=== PATIENT | female | born 1990 | race Two or more races ===

== ENCOUNTER 2023-07-13 08:59 | Outpatient (CLI) | payer MEDICAID | END 2023-07-13 09:00 | disposition home or self-care (01) | LOC: LAB.N 08:59 | PROVIDERS: ATTEND Obstetrics & Gynecology | DX: Z34.90 Encounter for supervision of normal pregnancy, unspecified, unspecified trimester (principal); Z36.89 Encounter for other specified antenatal screening | CPT/HCPCS: 36415; 82950; 86762 ==

== ENCOUNTER 2023-07-19 13:33 | Outpatient (CLI) | payer MEDICAID | END 2023-07-19 13:34 | disposition home or self-care (01) | LOC: LAB 13:33 | PROVIDERS: ATTEND Obstetrics & Gynecology | DX: Z53.9 Procedure and treatment not carried out, unspecified reason (principal) ==

== ENCOUNTER 2023-07-21 07:49 | Outpatient (CLI) | payer MEDICAID ==
[2023-07-21 08:35] LABS: GTT GLUCOSE,FASTING 83 mg/dL (74-109)
== END 2023-07-21 07:50 | disposition home or self-care (01) ==
LOC: LAB 07:49
PROVIDERS: ATTEND Obstetrics & Gynecology
DX: O99.810 Abnormal glucose complicating pregnancy (principal)
CPT/HCPCS: 36415; 82951; 82952

== ENCOUNTER 2023-09-04 01:44 | Inpatient (IN) | payer MEDICAID ==
[2023-09-04] MEDS ORDERED: OXYTOCIN/SODIUM CHLORIDE 500 ML IV PRN ×2 (02:22→03:19)
[2023-09-04] MEDS ORDERED: LACTATED RINGERS 1,000 ML IV PRN (02:22)
[2023-09-04] MEDS ORDERED: miSOPROStoL 200 MCG TABLET BC PRN (02:22)
[2023-09-04] MEDS ORDERED: lidocaine 1% 20 ML MDV ID PRN (02:22)
[2023-09-04] MEDS ORDERED: fentaNYL 100 MCG/2 ML VIAL IVP PRN (02:22)
[2023-09-04] MEDS ORDERED: CARBOPROST TROMETHAMINE 250 MCG/ML AMP IM PRN (02:22)
[2023-09-04] MEDS ORDERED: OXYTOCIN 10 UNIT/ML VIAL IM PRN (02:22)
[2023-09-04] MEDS ORDERED: TERBUTALINE 1 MG/ML VIAL SUBQ PRN (02:22)
[2023-09-04] MEDS ORDERED: METHYLERGONOVINE 0.2 MG/ML VIAL IM PRN (02:22)
[2023-09-04] MEDS ORDERED: hydrALAZINE INJ 20 MG/ML VIAL IVP PRN ×2 (02:22)
[2023-09-04] MEDS ORDERED: NIFEdipine 10 MG CAPSULE PO PRN (02:22)
[2023-09-04] MEDS ORDERED: SODIUM CHLORIDE FLUSH 0.9% 10 ML SYRINGE IVP PRN (02:22)
[2023-09-04] MEDS ORDERED: miSOPROStoL 200 MCG TABLET PR PRN (02:22)
[2023-09-04] MEDS ORDERED: TRANEXAMIC ACID IN NACL 1,000 MG/100 ML BAG IV PRN (02:22)
[2023-09-04] MEDS ORDERED: LABETALOL 20 MG/4 ML SYRINGE IVP PRN ×3 (02:22)
[2023-09-04] MEDS ORDERED: METHYLERGONOVINE 0.2 MG/ML VIAL ONE (02:32)
[2023-09-04] MEDS ORDERED: OXYTOCIN 10 UNIT/ML VIAL ONE (02:33)
[2023-09-04] MEDS ORDERED: CARBOPROST TROMETHAMINE 250 MCG/ML AMP IM ONE (02:33)
[2023-09-04] MEDS ORDERED: SIMETHICONE CHEW 80 MG TABLET PO PRN ×2 (02:44→03:19)
[2023-09-04] MEDS ORDERED: ONDANSETRON 4 MG/2 ML VIAL IVP PRN ×2 (02:44→03:19)
[2023-09-04] MEDS ORDERED: LACTATED RINGERS 1,000 ML IV SCH ×2 (02:44→03:00)
[2023-09-04 03:09] LABS: BASOPHILS % (AUTO) 0.2 %; EOSINOPHILS % (AUTO) 0.1 %; HCT - HEMATOCRIT 38.9 % (37.0-47.0); HGB - HEMOGLOBIN 12.6 g/dL (12.0-16.0); LYMPHOCYTES # (AUTO) 2.1 10^3/uL (1.5-3.5); LYMPHOCYTES % (AUTO) 15.3 %; MEAN CORPUSCULAR HEMOGLOBIN 28.4 pg (27.0-31.0); MEAN CORPUSCULAR HGB CONC 32.4 g/dL (32.0-36.0); MEAN CORPUSCULAR VOLUME 87.8 fL (81.0-99.0); MEAN PLATELET VOLUME 10.5 fL (7.9-10.8); MONOCYTES # (AUTO) 0.6 10^3/uL (0.0-1.0); MONOCYTES % (AUTO) 4.5 %; NEUTROPHILS # (AUTO) 10.8 10^3/uL (1.5-6.6); NEUTROPHILS % (AUTO) 79.5 %; PLT - PLATELET COUNT 263 10^3/uL (130-450); RED BLOOD COUNT 4.43 10^6/uL (4.20-5.40); RED CELL DISTRIBUTION WIDTH 13.6 % (12.0-15.0); WHITE BLOOD COUNT 13.5 x10^3/uL (4.8-10.8)
--- NOTE | 2023-09-04 03:09 | HISTORY & PHYSICAL EXAMINATION ---
Admit History - Visit Reason Visit Reason: Contractions, Membranes rupture - : 5 Parity: 4 Care: positive: [facility] Risk/History: positive: None Complications This : positive: None - Mother's Labs Mother's Blood Type: positive: O Mother's RH: positive: Positive GBS: positive: Group B Step Negative - HPI Diagnosis/Indication for NST: Other (labor) - NST Procedure 39+3 weeks 145, moderate variability, +accels, no decels Reactive NST Review of Systems - All Other Systems All Other Systems: reports: Reviewed and negative Physical - Abdominal Exam Vital Signs: VSS Contraction Frequency (min/apart): 3 Contraction Intensity: positive: Strong Uterine Resting Tone: positive: Soft - Monitoring Strip Review: positive: Category I - Presentation Presentation: positive: Vertex - Vaginal Exam Membranes: positive: Membranes ruptured Dilation (in cm): 9 Effacement (%): 90 Station: positive: 1 Cervical Position: positive: Anterior - Speculum Exam Findings: positive: Gross leak Plan for Labor - Plan For Labor I expect patient to be DC'd or transferred within 96 hours.: Yes Plan for Labor: Patient is a who presented at term in active labor with rupture of membranes around 2 am. Anterior cervical lip. wellbeing is reassuring. GBS negative.
--- NOTE | 2023-09-04 03:18 | DELIVERY NOTE ---
Delivery Note - Labor Labor: positive: Spontaneous - Presentation Presentation: positive: Vertex - Nuchal Cord Nuchal Cord: positive: None - Amniotic Fluid Description Amniotic Fluid Description: positive: Clear - Episiotomy Type Episiotomy Type: positive: None - Laceration Laceration: positive: Cervical - Suture Suture Type: positive: Other (monocyrl) Suture Size: positive: 3-0 - Delivery Outcome Delivery Outcome: positive: Livebirth - : positive: Bulb syringe, Warmed, [place] used, Warmer used sex: positive: Male - Cord Cord: positive: 3 vessels - Placenta Placenta: positive: Intact - Estimated Blood Loss Estimated Blood Loss (in cc): 250 - Delivery Comments (Free Text/Narrative) Delivery Comments (Free Text/Narrative): Stage I: Patient is a presented in active labor with spontaneous rupture of membranes at about 2 am with clear fluid. FHTs remained reassuring throughout the first stage. Stage II: Male infant atraumatically delivered from [place] position while patient standing. There was no nuchal cord. The anterior shoulder was delivered without difficulty followed by the posterior shoulder and body. was vigorous at delivery. was bulb suctioned and cord was doubly clamped and cut. was placed on mom. Weight and APGARS pending Stage III: Gentle cord traction and crede maneuver were used. Placenta delivered spontaneously. Placenta was noted to not be intact. 3 vessel cord. Course: Uterine tone was firm with massage after delivery of the placenta. Oxytocin was administered IV. There was a small anterior cervical laceration that required a [id number] suture of 3-0 monocryl. No perineal lacerations. EBL: 250 mL. Sponge, instrument and needle counts were correct. branch maker used.
[2023-09-04] MEDS ORDERED: NALOXONE 0.4 MG/ML VIAL IVP PRN (03:19)
[2023-09-04] MEDS ORDERED: CALCIUM CARBONATE CHEW 500 MG TABLET PO PRN (03:19)
[2023-09-04 03:46] LABS: ALBUMIN 3.6 g/dL (3.2-5.5)
[2023-09-04 03:48] LABS: ALBUMIN/GLOBULIN RATIO 1.1 (1.0-2.2); BILIRUBIN,TOTAL 0.3 mg/dL (0.2-1.0); CALCIUM 9.1 mg/dL (8.5-10.3); CREATININE 0.6 mg/dL (0.6-1.3); POTASSIUM 3.8 mmol/L (3.5-4.5)
[2023-09-04] MEDS ORDERED: ACETAMINOPHEN 500 MG TABLET PO SCH (04:00)
[2023-09-04] MEDS ORDERED: KETOROLAC 30 MG/ML VIAL IVP SCH (06:00)
[2023-09-04] MEDS: IBUPROFEN 600 MG TABLET PO SCH ×3 (08:08→21:14)
[2023-09-04] MEDS: DOCUSATE SODIUM 100 MG CAPSULE PO SCH ×2 (08:08→21:15)
[2023-09-04] MEDS ORDERED: DOCUSATE SODIUM 100 MG CAPSULE PO SCH (09:00)
--- NOTE | 2023-09-04 10:40 | PROVIDER PROGRESS NOTE ---
Subjective - Prog Note Date Prog Note Date: 09/04/23 Prog Note Time: 10:38 - Subjective Subjective: Patient is day 0 status post normal spontaneous vaginal delivery. Patient is doing well this morning. She is ambulating, tolerating regular diet. Lochia is equal to menses. Objective - Vital Signs/Intake & Output Reviewed Vital Signs: Yes Vital Signs: Vital Signs x48h Temp Pulse Resp BP 09/04/23 08:00 98.3 F 68 16 115/71 09/04/23 05:43 99.5 F 75 18 119/68 - Objective General Appearance: positive: No acute distress Respiratory: positive: Breath sounds nml Cardiovascular: positive: Regular rate & rhythm Abdomen: positive: Non-tender (firm fundus below umbilicus) Skin: positive: Color nml Extremities: positive: No pedal edema - Lab Results Fish Bones: 09/04/23 02:15 09/04/23 02:15 Other Labs: Lab Results x24hrs 09/04/23 09/04/23 09/04/23 Range/Units 02:15 02:15 02:15 WBC 13.5 H (4.8-10.8) x10^3/uL RBC 4.43 (4.20-5.40) 10^6/uL Hgb 12.6 (12.0-16.0) g/dL Hct 38.9 (37.0-47.0) % MCV 87.8 (81.0-99.0) fL MCH 28.4 (27.0-31.0) pg MCHC 32.4 (32.0-36.0) g/dL RDW 13.6 (12.0-15.0) % Plt Count 263 (130-450) 10^3/uL MPV 10.5 (7.9-10.8) fL Neut # (Auto) 10.8 H (1.5-6.6) 10^3/uL Lymph # (Auto) 2.1 (1.5-3.5) 10^3/uL [place] # (Auto) 0.6 (0.0-1.0) 10^3/uL Eos # (Auto) 0.0 (0.0-0.7) 10^3/uL Baso # (Auto) 0.0 (0.0-0.1) 10^3/uL Absolute Nucleated RBC 0.00 x10^3/uL Nucleated RBC % 0.0 /100WBC Sodium 135 (135-145) mmol/L Potassium 3.8 (3.5-4.5) mmol/L Chloride 104 (101-111) mmol/L Carbon Dioxide 18 L (21-32) mmol/L Anion Gap 13.0 (6-13) BUN 12 (6-20) mg/dL Creatinine 0.6 (0.6-1.3) mg/dL Estimated GFR (MDRD) 116 (>89) Glucose 152 H (74-104) mg/dL Calcium 9.1 (8.5-10.3) mg/dL Total Bilirubin 0.3 (0.2-1.0) mg/dL AST 17 (10-42) IU/L ALT 10 (10-60) IU/L Alkaline Phosphatase 200 H (42-121) IU/L Total Protein 7.0 (6.4-8.9) g/dL Albumin 3.6 (3.2-5.5) g/dL Globulin 3.4 (2.1-4.2) g/dL Albumin/Globulin Ratio 1.1 (1.0-2.2) Blood Type O POSITIVE Antibody Screen NEGATIVE Assessment/Plan - Problem List (1) Vaginal delivery Impression: Routine care
[2023-09-04] MEDS: ACETAMINOPHEN 500 MG TABLET PO SCH ×2 (13:16→21:15)
[2023-09-05] MEDS ORDERED: IBUPROFEN 600 MG TABLET PO SCH (04:00)
[2023-09-05] MEDS: ACETAMINOPHEN 500 MG TABLET PO SCH ×2 (04:41→12:08)
[2023-09-05] MEDS: IBUPROFEN 600 MG TABLET PO SCH ×2 (04:41→12:09)
--- NOTE | 2023-09-05 08:24 | PROVIDER PROGRESS NOTE ---
Subjective - Prog Note Date Prog Note Date: 09/05/23 Prog Note Time: 08:22 - Subjective Subjective: Patient is day 1 status post normal spontaneous vaginal delivery. She is doing well this morning. She is ambulating, tolerating regular diet, s pontaneously voiding. Lochia is equal to menses.Patient is breast and bottlefeeding. Objective - Vital Signs/Intake & Output Reviewed Vital Signs: Yes Vital Signs: Vital Signs x48h Temp Pulse Resp BP 09/05/23 07:59 98.1 F 81 18 116/69 09/05/23 05:22 98.2 F 76 16 110/76 - Objective General Appearance: positive: No acute distress Respiratory: positive: Breath sounds nml Cardiovascular: positive: Regular rate & rhythm Abdomen: positive: Non-tender (Firm fundus below the umbilicus) Skin: positive: Color nml Extremities: positive: No pedal edema Neurologic/Psychiatric: positive: Oriented x3 - Lab Results Fish Bones: 09/04/23 02:15 09/04/23 02:15 Assessment/Plan - Problem List (1) Vaginal delivery Impression: Uncomplicated course. Discussed signs and symptoms of depression. Reviewed contraception options, patient would like to think about them at this time. computer graphic designer used
--- NOTE | 2023-09-05 08:25 | DISCHARGE SUMMARY ---
Discharge Summary Admit Date: 09/04/23 Discharge Date: 09/05/23 Discharging Provider: Aaron Code Status: Attempt Resuscitation Condition at Discharge: Good Discharge Disposition: 01 Home, Self Care - DIAGNOSES Admission Diagnoses: labor - HPI History of Present Illness: Patient is a G5, P4 who presented at term in labor with spontaneous rupture membranes. - HOSPITAL COURSE Hospital Course: Patient had an uncomplicated normal spontaneous vaginal delivery. She had a small cervical laceration that required a single [id number] suture of 3-0 Monocryl. She had an uncomplicated course and was discharged home on day 1. Patient was counseled on signs and symptoms of depression. Patient was counseled on contraception options and is undecided at this time. - ALLERGIES Allergies/Adverse Reactions: Allergies Allergy/AdvReac Type Severity Reaction Status Date / Time No Known Drug Allergies Allergy Verified 09/04/23 04:22 - PHYSICAL EXAM AT DISCHARGE General Appearance: positive: No acute distress Respiratory: positive: Breath sounds nml Cardiovascular: positive: Regular rate & rhythm Abdomen: positive: Non-tender (Firm fundus below the umbilicus) Extremities: positive: No pedal edema Neurologic/Psychiatric: positive: Mood/affect nml - LABS Result Diagrams: 09/04/23 02:15 09/04/23 02:15
[2023-09-05] MEDS: DOCUSATE SODIUM 100 MG CAPSULE PO SCH (08:42)
[2023-09-05 12:24] VITALS: BP 112/69
--- NOTE | 2023-09-05 17:53 | Labor Flowsheet ---
Labor Flowsheet Datetime Report Generated by CPN: 09/05/2023 17:53 Datetime: 09/05/2023 12:16 VITAL SIGNS NBP Sys/Maranda/Mean (mmHg): 112 : 69 : 80 Pulse: 80 Datetime: 09/04/2023 05:43 Stage of : Datetime: 09/04/2023 04:58 VAGINAL EXAM Membranes Ruptured Date/Time: 09/04/2023 02:09 Membranes Rupture Method: Spontaneous Amniotic Fluid Color: Clear Amniotic Fluid Amount: Moderate Amniotic Fluid Odor: None Datetime: 09/04/2023 02:44 Stage 2 Comments: baby out Datetime: 09/04/2023 02:43 FHR Baseline Rate : 145 Datetime: 09/04/2023 02:40 UTERINE ACTIVITY Monitor Mode: External Frequency (min): 2-3 Quality: Strong Pattern: Normal: <= 5 Contractions in 10 Minutes Resting Tone (Palpate): Relaxed Contraction Comments: contraction duration indeterminate while patient pushing ASSESSMENT A Monitor Mode: External US Variability: Moderate 6-25 bpm Accelerations: 15X15 Decelerations: Early Category: Category I STAGE 2 Pushing: Urge to Push Pushing Position: Pushing with Contractions; Pushing Squatting Pushing Progress: Presenting Part Visible Datetime: 09/04/2023 02:36 Monitor Interventions for UA: [place] Adjusted Duration (sec): 40-90 Datetime: 09/04/2023 02:30 Monitor Interventions for FHR: Ultrasound Adjusted
== END 2023-09-05 17:40 | disposition home or self-care (01) | DRG 768 ==
LOC: WFO 01:44 → FBP 01:55 → WFO 02:23
PROVIDERS: ADMIT Obstetrics & Gynecology Obstetrics; ATTEND Obstetrics & Gynecology Obstetrics
PROC: 10E0XZZ Delivery of Products of Conception, External Approach (ICD-10-PCS; principal; 2023-09-04)
PROC: 0UQC7ZZ Repair Cervix, Via Natural or Artificial Opening (ICD-10-PCS; 2023-09-04)
DX: O71.3 Obstetric laceration of cervix (principal); Z37.0 Single live birth; Z3A.39 39 weeks gestation of pregnancy
CPT/HCPCS: 59409; 80053; 85025; 86850; 86900; 86901; A9270; J7120; 84443; 99215